=== PATIENT | female | born 1990 | race African-American/Black ===

== ENCOUNTER 2017-01-21 11:58 | Emergency (ER) | payer OTHER ==
[~2017-01-21] VITALS: Ht 152.4 cm; Wt 62.1 kg
[~2017-01-21 11:58] MED LIST: CIPR500T PO; CYCL-331 PO; DOXY100T PO; HYDR-971 PO; IBUP800T19 PO; METR500T PO; PRED20TA PO
--- NOTE | 2017-01-21 13:23 | RAD ---
Indication: Right ankle pain for one day. Technique: 3 views of the right ankle are submitted for review. No comparison is available. Findings: There is soft tissue swelling which is greater laterally. There is no fracture or dislocation. Impression: Soft tissue swelling.
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
[2017-01-21 13:58] VITALS: BP 131/76
[2017-01-21] MEDS ORDERED: IBUPROFEN 600 MG TABLET. PO ONE (14:00)
== END 2017-01-21 13:58 | disposition home or self-care (01) ==
LOC: ER 11:58
DX: S93.401A Sprain of unspecified ligament of right ankle, initial encounter (principal); F17.200 Nicotine dependence, unspecified, uncomplicated; Y08.89XA Assault by other specified means, initial encounter; Y93.89 Activity, other specified; Y99.8 Other external cause status; Y92.89 Other specified places as the place of occurrence of the external cause
CPT/HCPCS: 73610; 99284

== ENCOUNTER 2017-04-28 20:15 | Emergency (ER) | payer OTHER ==
[~2017-04-28] VITALS: Ht 152.4 cm; Wt 72.1 kg
[2017-04-28 20:15] VITALS: BP 145/86
[2017-04-28] MEDS ORDERED: HYDR-965 PO (20:30)
[2017-04-28] MEDS ORDERED: AMOX875T PO (20:30)
--- NOTE | 2017-04-28 20:33 | PHYS DOC ---
General Chief Complaint: DENTAL PROBLEM Stated Complaint: DENTAL PAIN Time Seen by MD: 20:20 Source: patient Exam Limitations: no limitations Problems: History of Present Illness Initial Comments Patient is a 27-year-old female who comes in the ED complaining of dental pain. Patient states that she has a prior root canal and a left lower premolar and has had pain issues since then. She has a dental appointment scheduled for May 03 but states she cannot tolerate the pain until she is able to get in with a dentist. Pain is described as sharp and stabbing, severe, eating and drinking make it worse and [id number] medications are only minimally effective. She's been eating less but has been drinking plenty of fluids. She denies headache fever chills sweats or body aches, no neck stiffness fatigue nausea or vomiting. No prior visits to this facility past medical history is negative. Emergency Department vital signs are stable Timing/Duration: gradual, last week Severity: severe Location: dental Prearrival Treatment: over the counter meds Modifying Factors: improves with other Associated Symptoms: tooth pain Allergies: Coded Allergies: No Known Drug Allergies (Unverified , 12/12/14) Past Medical History Medical History: no pertinent history Surgical History: noncontributory, other Family History Significant Family History: no pertinent family hx Social History Smoker: non-smoker Alcohol: none Drugs: none Constitutional: denies chills, denies diaphoresis, denies fever, denies malaise Ears: denies dizziness, denies pain, denies tinnitus Nose: denies clots, denies congestion, denies epistaxis Mouth: see HPI Throat: denies pain, denies swelling, denies neck stiffness, denies hoarse Respiratory: denies cough, denies shortness of breath Cardiovascular: denies chest pain, denies palpitations, denies syncope Gastrointestinal: denies diarrhea, denies nausea, denies vomiting Musculoskeletal: denies back pain, denies joint pain, denies neck pain Neurological: denies headache (at this), denies numbness, denies paresthesia Physical Exam General Appearance: moderate distress Eyes: bilateral eye normal inspection, bilateral eye PERRL, bilateral eye EOMI Nose: normal inspection Mouth/Throat: other (gingival swelling noted at the left lower premolar mild erythema no purulence no bony tenderness. 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 She was advised that moving forward pain medications for chronic conditions are not dispensed from the emergency department. Departure Time of Disposition: 20:32 Disposition: HOME, SELF-CARE Diagnosis: dental abscess Condition: GOOD Patient Instructions: Dental Abscess Additional Instructions: Aggressive hydration with gatorade, water. OTC ibuprofen for baseline pain. Rx: norco 7.5mg #20, amoxicillin Follow up with your dentist 05/03 as scheduled. Return to ED with new or changing symptoms. GRICEL CUELLO DO Apr 28, 2017 20:33
[2017-04-28] MEDS ORDERED: HYDROcodone/APAP 10/325 1 TAB TABLET PO ONE (20:45)
[2017-04-28] MEDS ORDERED: AMOXICILLIN 500 MG CAPSULE PO ONE (20:45)
== END 2017-04-28 20:35 | disposition home or self-care (01) ==
LOC: ER 20:15
DX: K04.7 Periapical abscess without sinus (principal)
CPT/HCPCS: 99283

== ENCOUNTER 2017-07-16 06:42 | Emergency (ER) | payer OTHER ==
[~2017-07-16] VITALS: Ht 152.4 cm; Wt 72.1 kg
[~2017-07-16 06:42] MED LIST changes: +AMOX875T PO; +HYDR-965 PO
[2017-07-16 06:58] VITALS: BP 103/95
[2017-07-16] MEDS ORDERED: AMOX500C PO (07:06)
[2017-07-16] MEDS ORDERED: TRAM50TA PO (07:06)
--- NOTE | 2017-07-16 07:09 | PHYS DOC ---
General Chief Complaint: TOOTH ACHE OR PAIN Stated Complaint: DENTAL PAIN Time Seen by MD: 06:58 Source: patient, old records Exam Limitations: no limitations Problems: History of Present Illness Initial Comments Patient is a 27-year-old female returning with dental pain. Patient was seen by me here April 28 with the same complaint. On that day she stated she had an upcoming dental appointment on May 03. I treated her on that day and advised her that no further treatment would take place if she did not follow-up with dentist as the emergency department is not suited to give restorative care for most dental needs. Patient expressed agreement and assured me that she would follow-up. Today she advises me that she did not follow-up for that dental appointment. When asked why she didn't reschedule after she missed it initially she said "well my tooth stopped hurting." She is complaining of left lower and upper molar pain described as severe and throbbing. No fever chills sweats or body aches, no neck stiffness dysphasia or dyspnea. No sensation of throat or tongue swelling. She says lwjb-lec-iejajca medications are not helping. Timing/Duration: gradual, last week Severity: severe Location: dental Prearrival Treatment: over the counter meds, prescription meds Modifying Factors: improves with other Associated Symptoms: tooth pain Allergies: Coded Allergies: No Known Drug Allergies (Unverified , 12/12/14) Past Medical History Medical History: no pertinent history Surgical History: noncontributory, other Family History Significant Family History: no pertinent family hx Social History Smoker: non-smoker Alcohol: none Drugs: none Constitutional: denies chills, denies diaphoresis, denies fever, denies malaise Ears: denies dizziness, denies pain, denies tinnitus Nose: denies congestion, denies epistaxis, denies pain Mouth: see HPI Throat: denies pain, denies swelling, denies neck stiffness, denies painful swallowing, denies difficulty with fluids Respiratory: denies cough, denies shortness of breath, denies wheezing Cardiovascular: denies chest pain, denies palpitations, denies syncope Gastrointestinal: denies abdominal pain, denies nausea, denies vomiting Neurological: denies headache, denies numbness, denies paresthesia, denies weakness Physical Exam General Appearance: no apparent distress Eyes: bilateral eye normal inspection, bilateral eye PERRL, bilateral eye EOMI Nose: normal inspection Mouth/Throat: other (essentially the entire upper and lower rows of her left molars have caries to some extent some worse than another. 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 She keeps repeating "can't you just pull it." I advised her that we can treat symptoms associated with dental pain but otherwise were really not very good at teeth. I reiterated that she has to follow-up with a dentist, that pain medications will not be dispensed or prescribed for chronic dental issues that she doesn't take it upon herself to address by seeing a dentist. Signs and symptoms to monitor as well as her indications for urgent return were discussed. Her questions were answered to her satisfaction. She expressed understanding and agreed to follow-up with dentist as stated. Departure Time of Disposition: 07:06 Disposition: 01 HOME, SELF-CARE Diagnosis: dental caries, noncompliance with care Condition: GOOD Patient Instructions: Dental Caries Additional Instructions: Listerine gargles 3 times daily after brushing and flossing. Aggressive hydration to prevent dehydration. Uwgt-[id number] Tylenol and ibuprofen for baseline discomfort. Prescription: Amoxicillin, tramadol 50 mg quantity 5 Take medications with food to avoid nausea and vomiting. This time your strongly encouraged to follow up with a dentist. As previously discussed the emergency department is not suited for the treatment of chronic dental issues. Must follow-up with dentist call tomorrow to schedule. Follow-up with your primary care doctor as needed. Return to ED with new or changing symptoms. GRICEL CUELLO DO Jul 16, 2017 07:09
[2017-07-16] MEDS ORDERED: KETOROLAC 60 MG/2 ML VIAL. IM ONE (07:15)
[2017-07-16] MEDS ORDERED: ONDANSETRON ODT 4 MG TAB.RAPDIS PO ONE (07:45)
[2017-07-16] MEDS ORDERED: AMOXICILLIN 250 MG CAPSULE PO ONE (07:45)
== END 2017-07-16 07:52 | disposition home or self-care (01) ==
LOC: ER 06:42
DX: K02.9 Dental caries, unspecified (principal); Z91.19 Patient's noncompliance with other medical treatment and regimen
CPT/HCPCS: 96372; 99283; J1885; Q0162

== ENCOUNTER 2020-02-27 16:12 | Emergency (ER) | payer OTHER ==
[~2020-02-27] VITALS: Ht 152.4 cm; Wt 100.0 kg
[~2020-02-27 16:12] MED LIST changes: +AMOX500C PO; +HYDR-3165 PO; +HYDR-3166 PO; -HYDR-965 PO; -HYDR-971 PO; +TRAM50TA PO
[2020-02-27 16:30] VITALS: BP 143/70
[2020-02-27] MEDS ORDERED: IBUPROFEN 600 MG TABLET. PO ONE (17:00)
--- NOTE | 2020-02-27 17:01 | RAD ---
US PELVIS W/TV History: Reason: pain / Spl. Instructions: / History: Comparison: None. Technique: Grayscale and color Doppler imaging of the pelvis was performed using transabdominal and transvaginal technique. Findings: The uterus measures 8.7 x 5.6 x 4.4 cm. Nabothian cysts noted. Hypoechoic solid-appearing cervical lesion measures 1.0 x 0.9 x 1.0 cm. No increased vascularity.. The endometrial stripe measures 11 mm. Left ovary measures 2.4 x 2.1 x 2.8 cm. Normal Doppler flow to the left ovary. Right ovary not identified due to overlying bowel gas. No adnexal masses are seen. Minimal pelvic free fluid, likely physiologic. IMPRESSION: 1. Hypoechoic cervical lesion. Recommend further clinical evaluation. Recommend ultrasound follow-up if indicated or MRI with and without contrast. 2. Right ovary not identified. Electronically signed by: Aristides Wood DO (02/27/2020 4:58 PM) [id number]
--- NOTE | 2020-02-27 17:21 | PHYS DOC ---
Past History Past Medical History: No Pertinent History Past Surgical History: No Surgical History Smoking: Less than 1pk/day Alcohol Use: Rarely Drug Use: None General Adult EDM: Chief Complaint: ABDOMINAL PAIN HPI: HPI: Patient is a 29-year-old female presenting to the ED with a chief complaint of pelvic cramping. Patient states that the symptoms started 2 days ago. Patient states that she is not on her menstrual cycle currently. Patient denies . Patient denies fever, chills, nausea, vomiting, diarrhea, dysuria, chest pain, shortness of breath. Patient denies vaginal bleeding, vaginal spotting, vaginal discharge. Review of Systems: Review of Systems: Constitutional: Denies fever or chills Eyes: Denies change in visual acuity HENT: Denies nasal congestion or sore throat Respiratory: Denies cough or shortness of breath Cardiovascular: Denies chest pain or edema GI: Complains of pelvic cramping : Denies dysuria Musculoskeletal: Denies back pain or joint pain Neurologic: Denies headache, focal weakness or sensory changes Heart Score: Risk Factors: Risk Factors: DM, Current or recent (<one month) smoker, HTN, HLP, family history of CAD, obesity. Risk Scores: Score 0 - 3: 2.5% MACE over next 6 weeks - Discharge Home Score 4 - 6: 20.3% MACE over next 6 weeks - Admit for Clinical Observation Score 7 - 10: 72.7% MACE over next 6 weeks - Early Invasive Strategies Current Medications: Current Meds: Current Medications Medications (Trade) Dose Ordered Sig/Chuck Start Time Stop Time Status Last Admin Dose Admin Ibuprofen (Motrin) 600 mg 1X ONCE 02/27/20 17:00 02/27/20 17:01 DC Allergies: Allergies: Allergies Coded Allergies Type Severity Reaction Last Updated Verified No Known Drug Allergies 12/12/14 No Physical Exam: PE: Constitutional: Well developed, well nourished, no acute distress, non-toxic appearance. [] HENT: Normocephalic, atraumatic Eyes: EOMI Neck: Normal range of motion, Supple Cardiovascular:Heart rate regular rhythm Lungs & Thorax: Bilateral breath sounds clear to auscultation [] Abdomen: Diffuse suprapubic cramping. Extremities: No tenderness, ROM intact Neurologic: Alert and oriented X 3 Current Patient Data: Vital Signs: Vital Signs Date Time Temp Pulse Resp B/P (MAP) Pulse Ox O2 Delivery O2 Flow Rate FiO2 02/27/20 16:30 98.3 90 16 143/70 (94) 99 Room Air EKG: EKG: [] Radiology/Procedures: Radiology/Procedures: [] Course & Med Decision Making: Course & Med Decision Making Pertinent Labs and Imaging studies reviewed. (See chart for details) Order ultrasound of the pelvis as well as UA and urine . Urine is negative. Ultrasound of the pelvis shows IMPRESSION: 1. Hypoechoic cervical lesion. Recommend further clinical evaluation. Recommend ultrasound follow-up if indicated or MRI with and without contrast. 2. Right ovary not identified. UA does not show UTI. Discussed results and plan of care with patient. Patient is instructed to follow-up with [facility] for the lesion on the cervix evaluation as soon as possible. Dragon Disclaimer: Dragon Disclaimer: This electronic medical record was generated, in whole or in part, using a voice recognition dictation system. Departure Departure: Impression: Primary Impression: Pelvic cramping Additional Impression: Lesion of cervix Disposition: HOME/RESIDENCE PRIOR TO ADM Condition: STABLE Referrals: Dr Wong Please call Dr Wong for appointment ERIBERTO. PCP,NO (PCP) Patient Instructions: Cervical Dysplasia, Pelvic Exam Additional Instructions: Discussed results and plan of care with patient. Patient is instructed to follow up with PCP in one to 2 days. Appropriate discharge instructions given to patient to return to the ED or to seek immediate medical evaluation. Patient is instructed to return to the ED if symptoms worsen or if any concerns. Justification of Admission: Justification of Admission: Justification of Admission Dx: ROMAIN Win DO Feb 27, 2020 17:21
[2020-02-27 17:29] LABS: BACTERIA,URINE FEW /HPF (0-FEW); BILIRUBIN,URINE NEG (NEG); CLARITY,URINE CLEAR; COLOR,URINE YELLOW; GLUCOSE,URINE NEG (NEG); NITRITE,URINE NEG (NEG); RBC,URINE RARE /HPF (0-2); UROBILINOGEN,URINE 0.2 mg/dL (0.2 mg/dL); WBC,URINE RARE /HPF (0-4)
[2020-02-27 17:30] LABS: SQUAMOUS EPITHELIAL CELL,UR FEW /LPF
== END 2020-02-27 17:45 | disposition home or self-care (01) ==
LOC: ER 16:12
DX: N89.8 Other specified noninflammatory disorders of vagina (principal); R10.2 Pelvic and perineal pain; F17.200 Nicotine dependence, unspecified, uncomplicated
CPT/HCPCS: 76830; 76856; 81001; 81025; 99284

== ENCOUNTER 2020-06-11 18:30 | Emergency (ER) | payer OTHER ==
[~2020-06-11] VITALS: Ht 167.6 cm; Wt 82.0 kg
--- NOTE | 2020-06-11 18:38 | PHYS DOC ---
Past History Past Medical History: No Pertinent History Past Surgical History: No Surgical History Smoking: Less than 1pk/day Alcohol Use: Rarely Drug Use: None General Adult HPI: HPI: ".. I can't get in to see my dentist until 06/30... I think it the same tooth I had a root canal on previously.. but the pain and edema is much worse.. " Patient is a 30 year old female who presents with above hx and complaints of dental pain in area of tooth 17& 18. Tooth 18 has a gold crown. Both 17 and 18 are tender to percussion. There is some surrounding swelling of the gumline on teeth at this area. No trismus. No history immunosuppression. No history of travel. No history of specific ill contacts. Pt. Has other areas of dental decay. No trismus. Review of Systems: Review of Systems: Constitutional: Denies fever or chills Eyes: Denies change in visual acuity HENT: Complaints of severe dental pain and facial edema. Respiratory: Denies cough or shortness of breath Cardiovascular: Denies chest pain or edema GI: Denies abdominal pain, nausea, vomiting, bloody stools or diarrhea : Denies dysuria Musculoskeletal: Denies back pain or joint pain Integument: Denies rash Neurologic: Denies headache, focal weakness or sensory changes Endocrine: Denies polyuria or polydipsia Lymphatic: Denies swollen glands Psychiatric: Denies depression or anxiety Heart Score: Risk Factors: Risk Factors: DM, Current or recent (<one month) smoker, HTN, HLP, family history of CAD, obesity. Risk Scores: Score 0 - 3: 2.5% MACE over next 6 weeks - Discharge Home Score 4 - 6: 20.3% MACE over next 6 weeks - Admit for Clinical Observation Score 7 - 10: 72.7% MACE over next 6 weeks - Early Invasive Strategies Family History: Family History: Noncontributory Current Medications: Current Meds: See nursing for home meds Allergies: Allergies: Allergies Coded Allergies Type Severity Reaction Last Updated Verified No Known Drug Allergies 12/12/14 No Physical Exam: PE: Constitutional: , moderate acute distress, non-toxic appearance. [] HENT: Normocephalic, atraumatic, bilateral external ears normal, oropharynx moist, no oral exudates, nose normal. Pain and dental area near teeth 17/18. Lt. facial edema. Eyes: PERRLA, EOMI, conjunctiva normal, no discharge. [] Neck: Normal range of motion, no tenderness, supple, no stridor. [] Cardiovascular:Heart rate regular rhythm, no murmur [] Lungs & Thorax: Bilateral breath sounds equal apex with scattered wheezes Abdomen: Bowel sounds normal, soft, no tenderness, no masses, no pulsatile masses. [] Skin: Warm, dry, no erythema, no rash. [] Back: No tenderness, no CVA tenderness. [] Extremities: No tenderness, no cyanosis, no clubbing, ROM intact, no edema. [] Neurologic: Alert and oriented X 3, normal motor function, normal sensory function, no focal deficits noted. [] Psychologic: Affect anxious, judgement normal, mood normal. [] EKG: EKG: [] Radiology/Procedures: Radiology/Procedures: [] Course & Med Decision Making: Course & Med Decision Making Pertinent Labs and Imaging studies reviewed. (See chart for details) Patient rinse mouth with Listerine or peroxide 4 times a day. Patient take Tylenol and ibuprofen for pain control. Keep follow-up with dentist. Take Keflex 500 mg 3 times a day. Follow-up primary care. Return if any concerns. Impression: 1. Dental Pain 17/18 area 2. Hx prior root canal and tooth 18 [] Ayala Disclaimer: Ayala Disclaimer: This electronic medical record was generated, in whole or in part, using a voice recognition dictation system. Departure Departure: Disposition: 01 DC HOME SELF CARE/HOMELESS Condition: STABLE Referrals: PCP,NO (PCP) Scripts Hydrocodone/Ibuprofen (HYDROCODONE-IBUPROFEN 7.5-200 ) 1 Each Tablet 1 TAB PO PRN Q6HRS PRN for PAIN, #30 TAB 0 Refills Prov: ARIN ROBERTS MD 06/11/20 Cephalexin (KEFLEX) 500 Mg Capsule 500 MG PO TID for dental abscess for 10 Days, BOTTLE Prov: ARIN ROBERTS MD 06/11/20 Ayala Disclaimer This chart was dictated in whole or in part using Voice Recognition software in a busy, high-work load, and often noisy Emergency Department environment. It may contain unintended and wholly unrecognized errors or omissions. Dragon Disclaimer This chart was dictated in whole or in part using Voice Recognition software in a busy, high-work load, and often noisy Emergency Department environment. It may contain unintended and wholly unrecognized errors or omissions. ARIN ROBERTS MD Jun 11, 2020 18:38
[2020-06-11 18:40] VITALS: BP 122/70
[2020-06-11] MEDS ORDERED: cefTRIAXone IM 1 GM VIAL IM ONE (19:00)
[2020-06-11] MEDS ORDERED: HYDR-1179 PO (19:04)
[2020-06-11] MEDS ORDERED: CEPH-264 PO (19:04)
[2020-06-11] MEDS ORDERED: KETOROLAC 60 MG/2 ML VIAL. IM ONE (19:15)
[2020-06-11 20:09] LABS: BARBITURATES NEG (NEG); BENZODIAZEPINES NEG (NEG); CANNABINOIDS POS (NEG); COCAINE NEG (NEG); METHADONE NEG (NEG); OPIATES NEG (NEG); PHENCYCLIDINE NEG (NEG)
[2020-06-11 20:29] LABS: AMPHETAMINE/METHAMPHETAMINE NEG (NEG); CLARITY,URINE CLEAR; COLOR,URINE YELLOW
[2020-06-11 20:30] LABS: BACTERIA,URINE 0 /HPF (0-FEW); BILIRUBIN,URINE NEG (NEG); GLUCOSE,URINE NEG (NEG); NITRITE,URINE NEG (NEG); RBC,URINE OCC /HPF (0-2); SQUAMOUS EPITHELIAL CELL,UR OCC /LPF; UROBILINOGEN,URINE 0.2 mg/dL (0.2 mg/dL); WBC,URINE 0 /HPF (0-4)
== END 2020-06-11 19:50 | disposition home or self-care (01) ==
LOC: ER 18:30
DX: K08.89 Other specified disorders of teeth and supporting structures (principal); K06.8 Other specified disorders of gingiva and edentulous alveolar ridge; F17.200 Nicotine dependence, unspecified, uncomplicated
CPT/HCPCS: 36415; 80307; 81001; 81025; 96372; 99284; J0696; J1885

== ENCOUNTER 2021-03-18 10:28 | Emergency (ER) | payer OTHER ==
[~2021-03-18] VITALS: Ht 167.6 cm; Wt 82.0 kg
[~2021-03-18 10:28] MED LIST changes: +CEPH-264 PO; -CIPR500T PO; +CIPR500T2 PO; +HYDR-1179 PO
[2021-03-18 10:36] VITALS: BP 147/84
[2021-03-18] MEDS ORDERED: HYDR-2759 PO (10:58)
[2021-03-18] MEDS ORDERED: AMOX1TAB61 PO (10:58)
--- NOTE | 2021-03-18 10:59 | PHYS DOC ---
Past History Past Medical History: No Pertinent History Past Surgical History: No Surgical History Smoking: Less than 1pk/day Alcohol Use: None Drug Use: None General Adult EDM: Chief Complaint: DENTAL PROBLEM HPI: HPI: 30-year-old female presents with dental pain. She is having both right sided and left-sided pain. This started 2 days ago. The pain in the left upper started fairly suddenly and the right side has been building. She has not made an appointment with her dentist. She is requesting a list of available dentist in this area. The patient states the pain is moderate to severe. She is willing to get an IM pain shot. Review of Systems: Review of Systems: Constitutional: Denies fever or chills Eyes: Denies change in visual acuity HENT: Dental pain Respiratory: Denies cough or shortness of breath Cardiovascular: Denies chest pain or edema GI: Denies abdominal pain, nausea, vomiting, bloody stools or diarrhea : Denies dysuria Musculoskeletal: Denies back pain or joint pain Integument: Denies rash Neurologic: Denies headache, focal weakness or sensory changes Endocrine: Denies polyuria or polydipsia Lymphatic: Denies swollen glands Psychiatric: Denies depression or anxiety Current Medications: Current Meds: Current Medications Medications (Trade) Dose Ordered Sig/Chuck Start Time Stop Time Status Last Admin Dose Admin Amoxicillin/ Clavulanate Potassium (Augmentin 875/ 125mg) 1 tab 1X ONCE 03/18/21 11:00 03/18/21 11:01 UNV Morphine Sulfate (Morphine 4mg Syringe) 4 mg 1X ONCE 03/18/21 11:00 03/18/21 11:01 UNV Ondansetron HCl (Zofran Odt) 4 mg 1X ONCE 03/18/21 11:00 03/18/21 11:01 UNV Allergies: Allergies: Allergies Coded Allergies Type Severity Reaction Last Updated Verified No Known Drug Allergies 06/11/20 No Physical Exam: PE: Constitutional: Well developed, well nourished, no acute distress, non-toxic appearance. [] HENT: Normocephalic, atraumatic, bilateral external ears normal, oropharynx moist, no oral exudates, nose normal. Poor dentition. Right lower molar with gum swelling and no palpable abscess. [] Eyes: PERRLA, EOMI, conjunctiva normal, no discharge. [] Neck: Normal range of motion, no tenderness, supple, no stridor. [] Cardiovascular:Heart rate regular rhythm, no murmur [] Lungs & Thorax: Bilateral breath sounds clear to auscultation [] Abdomen: Bowel sounds normal, soft, no tenderness, no masses, no pulsatile masses. [] Skin: Warm, dry, no erythema, no rash. [] Back: No tenderness, no CVA tenderness. [] Extremities: No tenderness, no cyanosis, no clubbing, ROM intact, no edema. [] Neurologic: Alert and oriented X 3, normal motor function, normal sensory function, no focal deficits noted. [] Psychologic: Affect normal, judgement normal, mood normal. [] Current Patient Data: Vital Signs: Vital Signs Date Time Temp Pulse Resp B/P (MAP) Pulse Ox O2 Delivery O2 Flow Rate FiO2 03/18/21 10:36 97.9 86 16 147/84 98 Room Air EKG: EKG: [] Radiology/Procedures: Radiology/Procedures: [] Heart Score: C/O Chest Pain: N/A Risk Factors: Risk Factors: DM, Current or recent (<one month) smoker, HTN, HLP, family history of CAD, obesity. Risk Scores: Score 0 - 3: 2.5% MACE over next 6 weeks - Discharge Home Score 4 - 6: 20.3% MACE over next 6 weeks - Admit for Clinical Observation Score 7 - 10: 72.7% MACE over next 6 weeks - Early Invasive Strategies Course & Med Decision Making: Course & Med Decision Making Pertinent Labs and Imaging studies reviewed. (See chart for details) I will give the patient 4 mg of Zofran ODT, 4 mg of morphine IM, and Augmentin in the ED. I will discharge her with Augmentin, a list of dental clinics, and [place] 5/325. I have reviewed the narcotics database and she only has 1 entry from fall 2019. She is stable for discharge at this time. [] Ayala Disclaimer: Ayala Disclaimer: This electronic medical record was generated, in whole or in part, using a voice recognition dictation system. Departure Departure: Impression: Primary Impression: Pain, dental Additional Impression: Dental infection Disposition: HOME / SELF CARE / HOMELESS Condition: STABLE Referrals: PCP,NO (PCP) Patient Instructions: Dental Pain, [id number] Scripts Amoxicillin/Potassium Clav (AUGMENTIN 875-125 TABLET) 1 Each Tablet 1 TAB PO BID for dental infection for 7 Days, #14 TAB 0 Refills Prov: RICARDO LAGOS DO 03/18/21 Hydrocodone/Acetaminophen (Hydrocodone-Acetamin 5-325 mg) 1 Each Tablet 1 EACH PO Q4-6HRS PRN for PAIN, #10 TAB Prov: RICARDO LAGOS DO 03/18/21 RICARDO LAGOS DO Mar 18, 2021 10:59
[2021-03-18] MEDS ORDERED: ONDANSETRON ODT 4 MG TAB.RAPDIS PO ONE (11:00)
[2021-03-18] MEDS ORDERED: AMOXICILLIN/K CLAV 875/125MG TABLET. PO ONE (11:00)
[2021-03-18] MEDS ORDERED: MORPHINE SULFATE 4 MG/ML DISP.SYRIN. IM ONE (11:00)
== END 2021-03-18 11:15 | disposition home or self-care (01) ==
LOC: ER 10:28
DX: K04.7 Periapical abscess without sinus (principal); F17.200 Nicotine dependence, unspecified, uncomplicated
CPT/HCPCS: 96372; 99283; J2270; Q0162